=== PATIENT | male | born 1980 | race African-American/Black ===

== ENCOUNTER 2024-05-01 14:10 | Inpatient (IN) | payer OTHER ==
[2024-05-01 14:53] LABS: #Basophils Less than 0.03 10x3/uL (0.0-0.2); #Eosinophils Less than 0.03 10x3/uL (0.0-0.7); %Basophils 0.2 % (0.0-1.0); %Lymphocytes 14.2 % (21.0-51.0); %Monocytes 9.9 % (0.0-10.0); %Neutrophils 75.6 % (42.0-75.0); Hematocrit 44.1 % (42.0-52.0); Hemoglobin 15.5 g/dL (14.0-18.0); Mean Corpuscular HGB CONC 35.1 g/dL (32.0-36.0); Mean Corpuscular Hemoglobin 30.9 pg (27.0-31.0); Mean Corpuscular Volume 87.8 fL (78.0-98.0); Mean Platelet Volume 10.8 fL (7.4-10.4); Platelet Count 301 10x3/uL (130-400); RBC Distribution Width 11.9 % (11.5-14.5); Red Blood Cell (RBC) Count 5.02 mill/uL (4.70-6.10)
[2024-05-01 15:14] LABS: ALT (SGPT) 25 U/L (8-55); AST (SGOT) 14 U/L (5-34); Albumin 4.1 g/dL (3.5-5.0); Alkaline Phosphatase 58 U/L (40-110); Anion Gap 30 mmol/L (10-20); BUN (Urea Nitrogen) 47 mg/dL (8.9-20.6); Bilirubin, Total 0.6 mg/dL (0.2-1.2); Calc. Creatinine Clearance 0 mL/min (70-130); Calcium 9.2 mg/dL (7.8-10.44); Carbon Dioxide 12 mmol/L (22-29); Chloride 79 mmol/L (98-107); Estimated GFR 19; Globulin 3.5 g/dL (2.4-3.5); Glucose 1347 mg/dL (70-105); Lipase 31 U/L (8-78); Magnesium 2.6 mg/dL (1.6-2.6); Potassium 5.6 mmol/L (3.5-5.1); Protein, Total 7.6 g/dL (6.0-8.3); Sodium 115 mmol/L (136-145)
[2024-05-01] MEDS ORDERED: Sodium Bicarb 50 MEQ/50 ML Abboject 8.4% SYRINGE ONE (16:14)
[2024-05-01] MEDS ORDERED: INSULIN REGULAR IN 0.9 % NACL 100 ML ONE (16:22)
[2024-05-01] MEDS ORDERED: CALCIUM GLUC 1 GM/NS 50 ML IV Bag ONE (16:22)
[2024-05-01] MEDS ORDERED: Bisacodyl 5 MG TAB PO PRN (16:42)
[2024-05-01] MEDS ORDERED: Sodium Chloride 0.9% 1,000 ML IV PRN ×4 (16:42)
[2024-05-01] MEDS ORDERED: Ondansetron ODT 4 MG TAB PO PRN (16:42)
[2024-05-01] MEDS ORDERED: Senokot S 8.6-50 MG TAB PO PRN (16:42)
[2024-05-01] MEDS ORDERED: Guaifenesin DM 100-10/5 ML UDCUP PO PRN (16:42)
[2024-05-01] MEDS ORDERED: Ondansetron PF 4 MG/2 ML Vial IVP PRN (16:42)
[2024-05-01] MEDS ORDERED: Calcium Carbonate 500 MG ChewTAB PO PRN (16:42)
[2024-05-01] MEDS ORDERED: NS 0.9% w/ 20 MEQ KCL 1,000 ML IV PRN (16:42)
[2024-05-01] MEDS ORDERED: Dextrose 5 %-0.45 % NaCl 1,000 ML IV PRN (16:42)
[2024-05-01] MEDS ORDERED: Electrolyte Replacement Protocol IVPB SCH (16:42)
[2024-05-01 16:51] LABS: Actual Bicarbonate (HCO3v) 15.2 mEq/L (22-28); Analyzer IN Cardio ER; Base Excess -10.3 mEq/L (-2.0 to +3.0); Calcium, Ionized (venous) 1.16 mmol/L (1.16-1.32); Chloride (VBG) 77 mmol/L (98-106); Hematocrit-VBG 46 % (42.0-52.0); Hemoglobin (Hb) 15.6 g/dL (13.2-17.3); pH (venous) 7.281 (7.32-7.43)
[2024-05-01 16:53] LABS: Sodium 119 mmol/L (133-146)
[2024-05-01 16:54] LABS: Potassium (VBG) 6.54 mmol/L (3.70-5.30)
[2024-05-01] MEDS ORDERED: hydrALAZINE 20 MG/ML VIAL SLOW IVP PRN (17:04)
[2024-05-01 17:58] LABS: Anion Gap 27 mmol/L (10-20); BUN (Urea Nitrogen) 50 mg/dL (8.9-20.6); Calc. Creatinine Clearance 0 mL/min (70-130); Calcium 8.6 mg/dL (7.8-10.44); Carbon Dioxide 13 mmol/L (22-29); Chloride 80 mmol/L (98-107); Estimated GFR 20; Glucose 1294 mg/dL (70-105); Potassium 6.5 mmol/L (3.5-5.1); Sodium 113 mmol/L (136-145)
[2024-05-01 18:06] LABS: Bacteria/HPF None Seen HPF (None Seen); Bilirubin Negative (Negative); Blood, Urine Trace (Negative); CAUTI Indications for Culture Dysuria,urgency,freq; Clarity Clear (Clear); Glucose, Urine (Dipstick) Greater than 1000 mg/dL (Negative); Ketone, Urine 10 mg/dL (Negative); Leukocyte Negative Leu/uL (Negative); Nitrite Negative (Negative); Protein, Urine (Dipstick) Negative (Neg-Trace); RBC/HPF 0-3 HPF (0-3); Specific Gravity, Urine 1.023 (1.002-1.036); Squamous Epithelial 0-3 HPF (0-3); Urobilinogen Normal mg/dL (Less than 2)
[2024-05-01 18:19] LABS: Urine Culture Reflex No No
[2024-05-01 18:25] LABS: Anion Gap 26 mmol/L (10-20); BUN (Urea Nitrogen) 49 mg/dL (8.9-20.6); Calc. Creatinine Clearance 0 mL/min (70-130); Calcium 8.7 mg/dL (7.8-10.44); Carbon Dioxide 13 mmol/L (22-29); Chloride 83 mmol/L (98-107); Estimated GFR 20; Glucose 1203 mg/dL (70-105); Potassium 5.8 mmol/L (3.5-5.1); Sodium 116 mmol/L (136-145)
[2024-05-01 19:38] VITALS: BMI 39.1
[2024-05-01 20:36] LABS: Glucose 820 mg/dL (70-105)
[2024-05-01] MEDS ORDERED: Famotidine 20 MG TAB PO SCH (21:00)
[2024-05-01] MEDS: Heparin 5,000 UNITS/ML VIAL SC SCH (21:37)
[2024-05-01 21:47] LABS: Anion Gap 19 mmol/L (10-20); BUN (Urea Nitrogen) 46 mg/dL (8.9-20.6); Calc. Creatinine Clearance 57 mL/min (70-130); Calcium 9.9 mg/dL (7.8-10.44); Carbon Dioxide 20 mmol/L (22-29); Chloride 94 mmol/L (98-107); Estimated GFR 22; Glucose 648 mg/dL (70-105); Potassium 4.4 mmol/L (3.5-5.1); Sodium 129 mmol/L (136-145)
[2024-05-01 22:23] LABS: Glucose 581 mg/dL (70-105)
[2024-05-01] MEDS: NS 0.9% w/ 20 MEQ KCL 1,000 ML IV PRN (22:47)
[2024-05-01 23:26] LABS: Glucose 391 mg/dL (70-105)
[2024-05-01] MEDS: INSULIN REGULAR IN 0.9 % NACL 100 ML IVPB SCH (23:36)
[2024-05-02] MEDS: D5 1/2 NS w/20 mEq KCL 1,000 ML IV PRN (01:01)
[2024-05-02 02:07] LABS: Anion Gap 17 mmol/L (10-20); BUN (Urea Nitrogen) 48 mg/dL (8.9-20.6); Calc. Creatinine Clearance 72 mL/min (70-130); Calcium 9.2 mg/dL (7.8-10.44); Carbon Dioxide 20 mmol/L (22-29); Chloride 104 mmol/L (98-107); Estimated GFR 30; Glucose 198 mg/dL (70-105); Potassium 3.7 mmol/L (3.5-5.1); Sodium 137 mmol/L (136-145)
[2024-05-02 05:24] LABS: #Basophils Less than 0.03 10x3/uL (0.0-0.2); %Basophils 0.3 % (0.0-1.0); %Eosinophils 1.1 % (0.0-10.0); %Lymphocytes 22.6 % (21.0-51.0); %Neutrophils 61.5 % (42.0-75.0); Hemoglobin 14.7 g/dL (14.0-18.0); Mean Corpuscular HGB CONC 36.8 g/dL (32.0-36.0); Mean Corpuscular Hemoglobin 30.6 pg (27.0-31.0); Mean Corpuscular Volume 83.2 fL (78.0-98.0); Mean Platelet Volume 10.4 fL (7.4-10.4); Platelet Count 273 10x3/uL (130-400); RBC Distribution Width 11.5 % (11.5-14.5); Red Blood Cell (RBC) Count 4.81 mill/uL (4.70-6.10)
[2024-05-02 05:43] LABS: ALT (SGPT) 19 U/L (8-55); AST (SGOT) 14 U/L (5-34); Albumin 3.5 g/dL (3.5-5.0); Alkaline Phosphatase 46 U/L (40-110); Anion Gap 14 mmol/L (10-20); BUN (Urea Nitrogen) 44 mg/dL (8.9-20.6); Bilirubin, Total 0.6 mg/dL (0.2-1.2); Calc. Creatinine Clearance 85 mL/min (70-130); Calcium 8.9 mg/dL (7.8-10.44); Carbon Dioxide 21 mmol/L (22-29); Chloride 105 mmol/L (98-107); Estimated GFR 36; Globulin 3.3 g/dL (2.4-3.5); Glucose 167 mg/dL (70-105); Magnesium 2.6 mg/dL (1.6-2.6); Potassium 3.6 mmol/L (3.5-5.1); Protein, Total 6.8 g/dL (6.0-8.3); Sodium 136 mmol/L (136-145)
[2024-05-02] MEDS ORDERED: Electrolyte Replacement Protocol FS PRN (07:30)
[2024-05-02] MEDS: Dextrose 50% Abboject 50 ML SYRINGE SLOW IVP PRN (07:36)
[2024-05-02 07:59] LABS: Anion Gap 15 mmol/L (10-20); BUN (Urea Nitrogen) 40 mg/dL (8.9-20.6); Calc. Creatinine Clearance 94 mL/min (70-130); Calcium 8.9 mg/dL (7.8-10.44); Carbon Dioxide 21 mmol/L (22-29); Chloride 105 mmol/L (98-107); Estimated GFR 40; Glucose 134 mg/dL (70-105); Potassium 3.5 mmol/L (3.5-5.1); Sodium 137 mmol/L (136-145)
[2024-05-02] MEDS ORDERED: Enoxaparin 40 MG (0.4 mL) SYRINGE SC SCH (09:00)
[2024-05-02] MEDS ORDERED: Glucagon 1 MG/ML KIT IM PRN (09:04)
[2024-05-02] MEDS ORDERED: Dextrose 5% in Water 1,000 ML IV PRN (09:04)
[2024-05-02] MEDS ORDERED: Dextrose 50% Abboject 50 ML SYRINGE SLOW IVP PRN (09:04)
[2024-05-02] MEDS: Insulin Glargine 30 UNITS/0.3 ML VIAL SC SCH (10:33)
[2024-05-02] MEDS: Potassium Chloride 20 MEQ TAB PO SCH (10:33)
[2024-05-02] MEDS: Pantoprazole 40 MG VIAL IVP SCH (10:34)
[2024-05-02] MEDS: NS 0.9% w/ 20 MEQ KCL 1,000 ML/1,000 ML BAG IV SCH (10:34)
[2024-05-02] MEDS: Insulin Lispro 100 UNIT/ML 10 ML VIAL SC PRN (12:05)
[2024-05-03 05:07] LABS: Anion Gap 13 mmol/L (10-20); BUN (Urea Nitrogen) 23 mg/dL (8.9-20.6); Calc. Creatinine Clearance 129 mL/min (70-130); Calcium 8.6 mg/dL (7.8-10.44); Carbon Dioxide 20 mmol/L (22-29); Chloride 105 mmol/L (98-107); Estimated GFR 59; Glucose 200 mg/dL (70-105); Potassium 3.5 mmol/L (3.5-5.1); Sodium 134 mmol/L (136-145)
[2024-05-03] MEDS: Insulin Glargine 30 UNITS/0.3 ML VIAL SC SCH (07:54)
[2024-05-03] MEDS: Magnesium 2 GM/50 ML(in water) 2 GM in Premix 1 BAG IVPB SCH (07:55)
[2024-05-03] MEDS: Potassium Chloride 20 MEQ TAB PO SCH (07:59)
[2024-05-03] MEDS ORDERED: Insulin Glargine 30 UNITS/0.3 ML VIAL SC SCH ×2 (09:00)
[2024-05-03] MEDS: metFORMIN 500 MG TAB PO SCH (16:56)
[2024-05-04] MEDS: Insulin Lispro 100 UNIT/ML 10 ML VIAL SC PRN (00:53)
[2024-05-04] MEDS: Pantoprazole DR 40 MG TAB PO SCH (08:32)
[2024-05-04] MEDS: FLU (Fluarix Triv) TS24-25(6MOS UP)/PF 45 MCG/0.5 ML Syringe IM ONE (08:33)
[2024-05-04 09:36] LABS: #Basophils 0.03 10x3/uL (0.0-0.2); %Basophils 0.6 % (0.0-1.0); %Eosinophils 1.9 % (0.0-10.0); %Lymphocytes 42.7 % (21.0-51.0); %Monocytes 12.8 % (0.0-10.0); %Neutrophils 41.8 % (42.0-75.0); Hematocrit 36.3 % (42.0-52.0); Hemoglobin 12.8 g/dL (14.0-18.0); Mean Corpuscular HGB CONC 35.3 g/dL (32.0-36.0); Mean Corpuscular Hemoglobin 30.6 pg (27.0-31.0); Mean Corpuscular Volume 86.8 fL (78.0-98.0); Mean Platelet Volume 10.5 fL (7.4-10.4); Platelet Count 200 10x3/uL (130-400); RBC Distribution Width 11.7 % (11.5-14.5); Red Blood Cell (RBC) Count 4.18 mill/uL (4.70-6.10)
[2024-05-04] MEDS: glipiZIDE 5 MG TAB PO SCH ×2 (09:50→16:18)
[2024-05-04 09:56] LABS: Hemoglobin A1c 11.6 % (4.0-6.0)
[2024-05-04 09:58] LABS: Anion Gap 12 mmol/L (10-20); BUN (Urea Nitrogen) 16 mg/dL (8.9-20.6); Calc. Creatinine Clearance 171 mL/min (70-130); Calcium 8.5 mg/dL (7.8-10.44); Carbon Dioxide 21 mmol/L (22-29); Chloride 102 mmol/L (98-107); Estimated GFR 80; Glucose 396 mg/dL (70-105); Potassium 3.7 mmol/L (3.5-5.1); Sodium 131 mmol/L (136-145)
[2024-05-04] MEDS: Heparin 5,000 UNITS/ML VIAL SC SCH (23:52)
[2024-05-05 07:52] VITALS: BP 162/97; TEMP 98.3
[2024-05-05] MEDS: Heparin 5,000 UNITS/ML VIAL SC SCH (08:49)
== END 2024-05-05 12:36 | disposition home or self-care (01) | DRG 638 ==
LOC: ERS 14:10 → CCU 16:46 → T4-B 05-03 08:53
PROVIDERS: ADMIT Internal Medicine; ATTEND Internal Medicine
DX: E11.00 Type 2 diabetes mellitus with hyperosmolarity without nonketotic hyperglycemic-hyperosmolar coma (NKHHC) (principal); N17.9 Acute kidney failure, unspecified; I10 Essential (primary) hypertension; E87.5 Hyperkalemia; E86.9 Volume depletion, unspecified; Z79.84 Long term (current) use of oral hypoglycemic drugs; E66.9 Obesity, unspecified; Z68.25 Body mass index [BMI] 25.0-25.9, adult
CPT/HCPCS: 36415; 36416; 76770; 80048; 82010; 82550; 82805; 83036; 83690; 83735; 85025; 96361; 96374; J0613; J1644; J1815; J2470; J3475; J3480; J7999